=== PATIENT | male | born 1945 | race Caucasian/White ===

== ENCOUNTER 2016-11-09 07:42 | Day surgery (SDC) | payer OTHER ==
[2016-11-08 11:52] VITALS: Ht 160 cm; Wt 75.0 kg
[~2016-11-09] VITALS: Ht 160 cm; Wt 75.0 kg
[2016-11-09 07:54] VITALS: BP 151/77; PULSE 68; RESP 16
[2016-11-09] MEDS ORDERED: MECL-77 PO (08:26)
[2016-11-09] MEDS ORDERED: GABA100C14 PO (08:27)
[2016-11-09] MEDS ORDERED: MELO-110 PO (08:27)
[2016-11-09] MEDS ORDERED: CILO100T PO (08:27)
[2016-11-09] MEDS ORDERED: ASPI-664 PO (08:28)
[2016-11-09] MEDS ORDERED: ATEN50TA PO (08:28)
[2016-11-09] MEDS ORDERED: FENTAnyl 50 MCG/ML VIAL ONE (09:13)
[2016-11-09] MEDS ORDERED: PROPOFOL 0 ML ONE (09:13)
[2016-11-09] MEDS ORDERED: ONDANSETRON 4 MG INJ ONE (09:13)
[2016-11-09] MEDS ORDERED: DEXAMETHASONE 4 MG/ML 1 ML INJ ONE (09:13)
[2016-11-09] MEDS ORDERED: MIDAZOLAM 1 MG/ML 2 ML INJ ONE (09:13)
[2016-11-09] MEDS ORDERED: CEFAZOLIN 1 GM INJ ONE (09:13)
== END 2016-11-09 23:00 | disposition home or self-care (01) ==
LOC: SDS 07:42
PROVIDERS: ATTEND Orthopaedic Surgery Hand Surgery
DX: M67.40 Ganglion, unspecified site (principal); Z53.9 Procedure and treatment not carried out, unspecified reason
CPT/HCPCS: J2250; J3010; J0690; J1100; J2405

== ENCOUNTER 2017-01-16 12:18 | Day surgery (SDC) | payer OTHER ==
[2017-01-16] VITALS (7 sets, daily range): BP systolic 119–130; BP diastolic 69–83; PULSE 56–71; RESP 12–28; Ht 160 cm; Wt 68.3 kg
[~2017-01-16] VITALS: Ht 160 cm; Wt 68.3 kg
[~2017-01-16 12:18] MED LIST: ASPI-664 PO; ATEN50TA PO; CILO100T PO; FLUMAZENIL 0.5 MG INJ ONE; GABA100C14 PO; MECL-77 PO; MELO-110 PO
[2017-01-16] MEDS ORDERED: LIDOCAINE 100 MG SYRINGE ONE (12:44)
[2017-01-16] MEDS ORDERED: PROPOFOL 100 ML ONE (12:44)
[2017-01-16] MEDS ORDERED: FENTAnyl 50 MCG/ML VIAL ONE (12:45)
[2017-01-16] MEDS ORDERED: MIDAZOLAM 1 MG/ML 2 ML INJ ONE (12:45)
[2017-01-16] MEDS ORDERED: MIDAZOLAM 1 MG/ML 2 ML INJ IV PRN (13:00)
[2017-01-16] MEDS ORDERED: hydrALAzine 20 MG INJ IV PRN (13:00)
[2017-01-16] MEDS ORDERED: ATROPINE 1 MG/10 ML SYRINGE IV PRN (13:00)
[2017-01-16] MEDS ORDERED: ONDANSETRON 4 MG INJ IV PRN (13:00)
[2017-01-16] MEDS ORDERED: HYDROmorphONE (0.2 MG/ML) 10ML SYG IV PRN ×3 (13:00)
[2017-01-16] MEDS ORDERED: EPHEDrine SULFATE 50 MG/5 ML SYG IV PRN (13:00)
[2017-01-16] MEDS ORDERED: MEPERIDINE 25 MG INJ IV PRN (13:00)
[2017-01-16] MEDS ORDERED: morphine (1 MG/ML) 10ML SYRINGE IV PRN ×3 (13:00)
[2017-01-16] MEDS ORDERED: LABETALOL HCL 20MG INJ IV PRN (13:00)
[2017-01-16] MEDS ORDERED: FENTAnyl 50 MCG/ML VIAL IV PRN ×2 (13:00)
[2017-01-16] MEDS ORDERED: DIPHENHYDRAMINE 50 MG INJ IV PRN (13:00)
[2017-01-16] MEDS ORDERED: OXYCODONE/ACETAMINOPHEN (5/325) TAB PO PRN ×3 (13:00→16:00)
[2017-01-16] MEDS ORDERED: ATOR10TA65 PO (13:30)
[2017-01-16] MEDS ORDERED: KETOROLAC 30 MG INJ ONE (13:47)
[2017-01-16] MEDS ORDERED: CEFAZOLIN 1 GM INJ ONE (14:27)
[2017-01-16] MEDS ORDERED: BUPIVACAINE 0.5% (SDV) 30 ML INJ ONE (14:35)
[2017-01-16] MEDS ORDERED: LIDOCAINE 1% (MPF) 30 ML INJ ONE (14:35)
[2017-01-16] MEDS ORDERED: POLYMYXIN/BACITRACIN 1L IRRIG ONE (14:35)
--- NOTE | 2017-01-16 15:48 | OPR ---
DATE OF OPERATION: 01/16/2017 PREOPERATIVE DIAGNOSIS: Large ganglion, right wrist. POSTOPERATIVE DIAGNOSES: 1. Large ganglion right wrist. 2. Tenosynovitis first extensor compartment. OPERATION PERFORMED: 1. Ganglionectomy. 2. Tenovaginotomy first extensor compartment. 3. Application of thumb spica splint. DESCRIPTION OF PROCEDURE: With the patient supine on the operating table, monitored anesthesia care was provided. Ancef 2 grams IV was administered. The right upper extremity from below the tourniq uet was prepared and draped in a sterile fashion. The Esmarch bandage was applied and the tournique t inflated to 250 mmHg. A longitudinal incision was made overlying the large mass on the dorsal rad ial aspect of the wrist. The mass was cystic and this was noted to be in the area of the extensor p ollicis longus extending to the first extensor compartment and dorsally to the second dorsal compart ment. The mass was dissected. It was ruptured during the dissection and removed. A syrupy type fl uid was expressed. The exact place for a stalk was not evident. The first extensor compartment was involved. The first extensor compartment was divided longitudinally and the first extensor compart ment was released. Thus, the tenovaginotomy was performed. The wound was irrigated with saline. S taples were used to approximate the skin. A voluminous sterile hand dressing and thumb spica splint was applied. The patient tolerated the procedure and left in satisfactory condition. Dictated By: GEOVANNA VERA/[place] Conf#: [id number] DID#: [id number]
== END 2017-01-16 16:30 | disposition home or self-care (01) ==
LOC: SDS 12:18
PROVIDERS: ATTEND Orthopaedic Surgery Hand Surgery
DX: M67.431 Ganglion, right wrist (principal); I10 Essential (primary) hypertension; E11.9 Type 2 diabetes mellitus without complications; E78.5 Hyperlipidemia, unspecified
CPT/HCPCS: 25111; J0690; J2001; J2250; J3010; Z7512; Z7610; 88304; J1885

== ENCOUNTER 2017-02-21 15:36 | Day surgery (SDC) | payer OTHER ==
[~2017-02-21] VITALS: Ht 160 cm; Wt 65.4 kg
[~2017-02-21 15:36] MED LIST changes: +ATOR10TA65 PO; -FLUMAZENIL 0.5 MG INJ ONE
[2017-02-21 16:25] VITALS: Ht 160 cm; Wt 65.4 kg
[2017-02-21 16:45] VITALS: BP 150/82; PULSE 68; RESP 18
[2017-02-21] MEDS ORDERED: LIDOCAINE 2% (SDV) 5 ML INJ ONE (16:48)
[2017-02-21] MEDS ORDERED: PROPOFOL 40 ML ONE (16:48)
[2017-02-21 18:10] VITALS: BP 159/87; PULSE 56; RESP 18
--- NOTE | 2017-02-21 18:11 | GILP ---
DATE OF PROCEDURE: 02/21/2017 NAME OF PROCEDURES: Colonoscopy and biopsy. SURGEON: Iveth Carlos MD PREOPERATIVE DIAGNOSIS: Positive occult blood in stool. POSTOPERATIVE DIAGNOSES: 1. Partial colonoscopy. 2. Multiple sigmoid colon polyps were removed. 3. Internal hemorrhoids. INDICATION FOR THE PROCEDURE: Mr. Dalton Hamlin is a 71-year-old male patient who had positive occult blood in stool. The patient was scheduled for colonoscopy for further evaluation. The procedure and possible complications are well explained to the patient. The patient understood and consented to the procedure. DESCRIPTION OF PROCEDURE: Under the influence of anesthesia, the colonoscope was carefully introduc ed in the rectum and it was advanced into the sigmoid colon. The patient had a sharp turn in the si gmoid colon and the scope could not be advanced further. So, the scope was withdrawn and upper endo scope was passed beyond that point into the proximal part of the colon. Because of the short length of the upper scope, the cecum could not be reached. FINDINGS: The patient was noted to have multiple sigmoid colon polyps and they were removed using t he biopsy forceps. The patient was noted to have internal hemorrhoids. He tolerated the procedure very well and there was no complication from the procedure. At the end o f the procedure, he was awake with stable vital signs and he was discharged home to the care of his family. IMPRESSION: 1. Partial colonoscopy because of sharp turn in the sigmoid colon. 2. Multiple sigmoid colon polyps were removed using the biopsy forceps. 3. Internal hemorrhoids. PLAN: 1. Await histopathology report. 2. The patient will need barium enema for the evaluation of the proximal part of the colon. Dictated By: IVETH RODRIGUES/[place] Conf#: [id number] DID#: [id number]
== END 2017-02-21 18:50 | disposition home or self-care (01) ==
LOC: GIL 15:36
PROVIDERS: ATTEND Internal Medicine Gastroenterology
DX: D12.5 Benign neoplasm of sigmoid colon (principal); K64.8 Other hemorrhoids; I10 Essential (primary) hypertension; I73.9 Peripheral vascular disease, unspecified
CPT/HCPCS: 45380; 88305; Z7610